=== PATIENT | female | born 1990 | race African-American/Black ===

== ENCOUNTER 2021-04-19 17:05 | Emergency (ER) | payer OTHER, SELFPAY ==
[2021-04-19 17:07] VITALS: BP 128/89; PULSE 66; RESP 14; TEMP 36.5; O2SAT 100; BMI 19.5
--- NOTE | 2021-04-19 17:38 | DI.CT.S_ITS ---
PROCEDURE: CT HEAD/BRAIN WO CON INDICATIONS: behavior changes TECHNIQUE: Noncontrast 4.5 mm thick angled axial sections acquired from the foramen magnum to the vertex, with coronal and sagittal reformats. For radiation dose reduction, the following was used: automated exposure control, adjustment of mA and/or kV according to patient size. COMPARISON: None. FINDINGS: Image quality: Excellent. CSF spaces: Basal cisterns are patent. No extra-axial fluid collections. Ventricles are normal in size and shape. Brain: No midline shift. No intracranial masses or hemorrhage. Gallego-white matter interface is normal. Skull and face: Calvarium and visualized facial bones are intact, without suspicious lesions. Sinuses: Visualized sinuses and mastoids are clear. IMPRESSION: No acute intracranial abnormality Dictated by: Suhas Doherty M.D. on 04/19/2021 at 16:49 Approved by: Suhas Doherty M.D. on 04/19/2021 at 16:50
[2021-04-19 18:14] LABS: Add Manual Diff / Slide Review NO; Basophils Absolute Auto 0 /uL (0-100); Basophils Percent Auto 0.5 % (0-2); Eosinophils Absolute Auto 0 /uL (0-450); Eosinophils Percent Auto 0.4 % (2-4); Hemoglobin 11.8 g/dL (12.0-16.0); Lymphocytes Absolute Auto 1700 /uL (1100-4500); Lymphocytes Percent Auto 32.6 % (25-40); Mean Corpuscular HGB Conc 33.8 % (30-36); Mean Corpuscular Hemoglobin 33.5 PG (26-34); Mean Corpuscular Volume 99.2 fL (80-100); Monocytes Absolute Auto 500 /uL (0-900); Monocytes Percent Auto 9.3 % (3-14); Neutrophils Absolute Auto 3000 /uL (1500-7000); Neutrophils Percent Auto 57.2 % (50-75); Platelet Count 311 X10^3/uL (150-400); Red Blood Cell Count 3.53 X10^6/uL (4.0-5.2); White Blood Cell Count 5.3 X10^3/uL (4.5-11.0)
[2021-04-19 18:17] LABS: Acetaminophen < 10 ug/mL (10-30); Alanine Aminotransferase 16 IU/L (<35); Albumin 4.7 g/dL (3.5-5.0); Albumin Globulin Ratio 1.5 (1.0-2.8); Alkaline Phosphatase 54 U/L (38-126); Aspartate Aminotransferase 25 IU/L (14-36); BUN Creatinine Ratio 19.4 (6-22); Bilirubin Total 0.5 mg/dL (0.2-1.3); Blood Urea Nitrogen 12 mg/dL (7-17); Calcium 9.4 mg/dL (8.4-10.2); Carbon Dioxide 27 mmol/L (22-32); Chloride 106 mmol/L (98-107); Estimated Glomerular Filt Rate > 60.0 mL/min (>60); Ethanol (ETOH) < 10 mg/dL; Globulin 3.2 g/dL (1.7-4.1); Glucose 87 mg/dL (70-100); HEMOLYSIS < 15 (0-50); Potassium 4.2 mmol/L (3.4-5.1); Salicylate < 1.0 mg/dL (<20); Sodium 142 mmol/L (137-145); Total Protein 7.9 g/dL (6.3-8.2)
--- NOTE | 2021-04-19 18:36 | CM.SWNOTE ---
GRIEF COUNSELLOR Assessment GRIEF COUNSELLOR - Soft Sugar Operator Head Assessment GRIEF COUNSELLOR/Soft Sugar Operator Head Assessment Time Spent with Patient Start date 04/19/21 Visit Start Time 17:50 End date 04/19/21 Visit End Time 18:05 Total time Care Management spent on 15 patient visit-in minutes Mental Health Screening Include Onset, Duration, Intensity Presenting Problem Patient presents to ED with commanding officer (CO) per recommendation from [facility] provider. It was reported that patient drove southbound with intent to go to [place] and patient did not show up for work. [place] commanding officer has concerns for patient's behaviors and patient not completing work duties or coming to work regularly Precipitating Event(s) Patient denies precipitating events and states work is fine When asked why patient is here she indicates that CO has concerns she is withdrawn and I drove towards [place] instead of work Patient endorses that someone called so she turned around. Patient Strengths Patient was willing to come to the ED with CO. Current Behavioral Health Provider(s) Patient endorses she had a MH Include Facility, Provider, Ph. # provider in 2018 or 2019 and does not have a current MH provider and does not have an interest in seeing a MH provider. Patient has scheduled appt with [facility] tomorrow at 1pm. Patient indicates her disinterest in attending appt but will do so if needed. Psych. Hx Mental Health and Chemical Patient denies MH dx but Dependency states she has normal amount of anxiety Patient denies substance use and ETOH use. Family Hx of Behavioral Abuse None reported Psychiatric Hospitalizations (date(s)/ None reported location) Psychosocial information & Support Patient is 30 y/o female who Systems resides in [place] and recently moved here 3 months ago from [place]. Patient states she is originally from [place]. Patient denies friends or family supports. 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 Patient endorses she likes it in the [employer]. Legal Concerns Legal Matters - Outstanding Issues None reported Mental Status Orientation (Person/Place/Time) A/Ox4 Stated Mood ok Affect (Congruent with Mood?) Flat, congruent with mood Thought Content - Specify/Describe Patient denies thought content Obsessions, Delusions, Hallucinations Thought Processes (Hehttsn-Omgbappp-Fnvt coherent Qceadcpf-Rmvzdgsi-Emlazaxbia- Fthrdzfhkykjre-Hbxiisp-Phxvbmqzyskq- Thought Blocking) Speech (Ywowpc-Bfua-Fhwdsns-Rapid-Soft- slow to respond, soft voice Loud-Pressured) Motor (Swsbvl-Ntrdlsarf-Mvgb-Other) normal/slow, not formally assessed. Patient presents with limited eye contact. Insight (Iyoh-Xrzn-Zuba/Limited) Poor/limited. Patient does not identify her recent behaviors as a concern. CO indicates to GRIEF COUNSELLOR after GRIEF COUNSELLOR meets with patient that patient is at risk of being in trouble due to missing work and not doing her job duties. Judgement (Cqct-Teys-Glib/Limited) Poor/limited. Patient does not present with concern about the consequences of missing work today. Impulse Control (Adequate-Impaired) Adequate during assessment Memory (Nsdxdnxmm-Isbwzz-Rfurhk, Intact, not formally assessed Impaired-Intact) Concentration (Intact-Impaired) intact Attention (Intact-Impaired) intact Behavior (Appropriate-Inappropriate) appropriate Additional Comment Patient answers questions when asked but does not elaborate to questions. Risk Assessment Suicidal Ideation (Plan) No Homicidal Ideation (Plan) No Intervention Intervention GRIEF COUNSELLOR enters room to meet with patient. Present in room is patient's [place] CO and patient provides consent for CO to be present. Patient presents with flat affect, slow to respond and limited speech. Patient is difficult to hear for GRIEF COUNSELLOR due to soft speaking voice. Patient denies HI and SI. Patient indicates understanding that her withdrawn behaviors and driving towards [place] today led to ED visit. Patient denies need or interest in follow through with MH providers on [facility]. It is reported that patient has appt with MH provider at [facility] tomorrow at 1300. Patient endorses that she does not have interest in seeing MH provider regularly. Patient indicates that she is fine and work is fine and denies concerns. GRIEF COUNSELLOR speaks with CO after meeting with patient who endorses that patient has not been showing up to work lately , stares at computer screen when she is at work and can be found sitting in her car for long periods of time. CO also reports that patient does not communicate much and has not connected with people due to her lack of communication. CO endorses that patient drove to exit [facility] when she was asked to turn around and return to [facility]. It is the opinion of this GRIEF COUNSELLOR that patient is safe to d/c to the community when medically clear. Patient was driven by [employer] CO who will provide further transportation as needed. [employer] NM indicates that patient will have BH f/u tomorrow. GRIEF COUNSELLOR reviews the above with ED provider Dr. Suazo who indicates agreement and understanding. Plan RA Plan ED provider to conduct further medical assessment for medical clearance, patient to d/c with [place] CO when medically clear and to f/u with [facility] for appt tomorrow. KENNEY Bernstein
[2021-04-19 18:47] LABS: Free T4, Direct Thyroxine 1.06 ng/dL (0.78-2.19)
[2021-04-19 19:19] LABS: UR Morphine/Opiate cutoff 300 Negative (Negative); Ur Creatinine Normal (Normal); Ur Specific Gravity Normal (Normal); Urine Amphetamines Negative (Negative); Urine Barbiturates Negative (Negative); Urine Benzodiazepines Negative (Negative); Urine Cocaine Negative (Negative); Urine MDMA Negative (Negative); Urine Methadone Negative (Negative); Urine Methamphetamines Negative (Negative); Urine Oxycodone Negative (Negative); Urine Phencyclidine Negative (Negative); Urine Tetrahydrocannabinol Negative (Negative); Urine Tricyclic Antidepressant Negative (Negative); Urine pH Normal (Normal)
--- NOTE | 2021-04-19 19:39 | PC.NURSE ---
Normal neuro exam. Pt is a/o x 4. States that she is aware that her behavior is concerning to others but is not concerning to her. Denies SI/HI. ENTRY LEVEL ELECTRICAL ENGINEER has seen pt and deemed safe for discharge when medically cleared.
--- NOTE | 2021-04-19 19:47 | ED.NEUROSD ---
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 She apparently found herself today driving to [place] where she was previously based. She got a phone call from superiors who instructed her to turn around and [place]. She was transferred here in December 2020 she was previously based in [place] from 2016 to 2020. She said in [place] she like to go hiking shopping out to dinner. She had friends. She is not necessarily close with her family. Here she denies having friends. She says she has previously been transferred in the does not note that anything is different about this particular transfer. She denies any trauma or injury to herself. She denies any suicidal or homicidal ideations. She has no pain currently. She has very limited on her responses. She denies any hallucinations either visual or auditory. On Anticoagulants: No Related Data Allergies Allergy/AdvReac Type Severity Reaction Status Date / Time No Known Drug Allergies Allergy Verified 04/19/21 19:36 Review of Systems Review of Systems Narrative: GENERAL: Denies chills,fever HEENT: Denies throat pain RESPIRATORY: Denies dyspnea, cough, wheezing CARDIOVASCULAR: Denies chest pain, palpitations GASTROINTESTINAL: Denies nausea, vomiting MUSCULOSKELETAL: Denies extremity pain, injury SKIN: No rash, no laceration, no pruritus NEUROLOGIC: Denies weakness, dizziness, headache, numbness 8 point review of systems is negative except for those stated above and HPI Psychiatric Psychiatric: Reports as per HPI Hematologic/Lymphatic On Anticoagulants: No Patient History Social History Smoking Status: Former smoker Smoking Status: Former smoker tobacco type: vaping Substance Use Type: does not use Exam Initial Vital Signs Initial Vital Signs: Vital Signs Temperature 97.7 F 04/19/21 17:07 Pulse Rate 66 04/19/21 17:07 Respiratory Rate 14 04/19/21 17:07 Blood Pressure 128/89 04/19/21 17:07 Pulse Oximetry 100 04/19/21 17:07 GENERAL: Well-appearing, well-nourished and in no acute distress. Minimal eye contact but does make eye contact very flat affect CARDIOVASCULAR: peripheral pulses in tact, cap refill <2 sec RESPIRATORY: No respiratory distress, speaks in full sentences without difficulty EXTREMITIES: Normal range of motion, no clubbing or edema. Neurovascularly intact NEUROLOGICAL: Cranial nerves II through XII grossly intact. Normal gait and speech. SKIN: Warm, dry, no petechiae, no rashes or lesions. Psych Appearance: grossly normal and well kempt Mental Status: mental status grossly normal Speech and Movement: speech and movement normal Mood: labile mood Affect: blunted Judgment: fair Course Orders Ordered: ED Orders 04/19/21 17:38 CT head/brain wo con Stat 04/19/21 17:49 Consult to [facility] - Primary [place] Stat 04/19/21 17:57 Acetaminophen Stat Complete Blood Count AUTO DIFF Stat Comprehensive Metabolic Panel Stat Ethanol (ETOH) Stat Free T4, Direct Thyroxine Stat Salicylate Stat Thyroid Stimulating Hormone Stat 04/19/21 18:29 Urine Drug Screen, Rapid Stat Urine Microscopic Stat Vital Signs Vital signs: Vital Signs - 8 hr 04/19/21 20:10 Pulse Rate 70 Respiratory Rate 18 Blood Pressure 122/78 Pulse Oximetry 99 MDM - Neuro Symptoms/Deficit Lab Data Result diagrams: 04/19/21 17:57 04/19/21 17:57 Labs: Lab Results 04/19/21 04/19/21 04/19/21 Range/Units 17:57 17:57 17:57 WBC 5.3 (4.5-11.0) X10^3/uL RBC 3.53 L (4.0-5.2) X10^6/uL Hgb 11.8 L (12.0-16.0) g/dL Hct 35.0 L (36-46) % MCV 99.2 (80-100) fL MCH 33.5 (26-34) PG MCHC 33.8 (30-36) % RDW 13.0 (11.6-14.8) % Plt Count 311 (150-400) X10^3/uL Neut % (Auto) 57.2 (50-75) % Lymph % (Auto) 32.6 (25-40) % [place] % (Auto) 9.3 (3-14) % Eos % (Auto) 0.4 L (2-4) % Baso % (Auto) 0.5 (0-2) % Neut # (Auto) 3000 (8734-7888) /uL Lymph # (Auto) 1700 (7116-4987) /uL [place] # (Auto) 500 (0-900) /uL Eos # (Auto) 0 (0-450) /uL Baso # (Auto) 0 (0-100) /uL Sodium 142 (137-145) mmol/L Potassium 4.2 (3.4-5.1) mmol/L Chloride 106 (98-107) mmol/L Carbon Dioxide 27 (22-32) mmol/L BUN 12 (7-17) mg/dL Creatinine 0.62 (0.52-1.04) mg/dL Estimated GFR > 60.0 (>60) mL/min BUN/Creatinine Ratio 19.4 (6-22) Glucose 87 (70-100) mg/dL Calcium 9.4 (8.4-10.2) mg/dL Total Bilirubin 0.5 (0.2-1.3) mg/dL AST 25 (14-36) IU/L ALT 16 (<35) IU/L Alkaline Phosphatase 54 (38-126) U/L Total Protein 7.9 (6.3-8.2) g/dL Albumin 4.7 (3.5-5.0) g/dL Globulin 3.2 (1.7-4.1) g/dL Albumin/Globulin Ratio 1.5 (1.0-2.8) TSH 2.20 (0.47-4.68) uIU/mL Free T4 1.06 (0.78-2.19) ng/dL Urine RBC (0-5/HPF) Urine WBC (0-5/HPF) Ur Squamous Epith Cells (0-5/HPF) Ur Transition Epith Cell (0-5/HPF) Urine Bacteria (None) Urine Mucus (Negative) Ur Culture Indicated? Salicylates < 1.0 (<20) mg/dL U Opiates 300ng/mL cut (Negative) Ur Oxycodone Screen (Negative) Urine Methadone Screen (Negative) Acetaminophen < 10 L (10-30) ug/mL Ur Barbiturates Screen (Negative) U Tricyclic Antidepress (Negative) Ur Phencyclidine Scrn (Negative) Ur Amphetamines Screen (Negative) U Methamphetamines Scrn (Negative) Ur MDMA Scrn (Ecstasy) (Negative) U Benzodiazepines Scrn (Negative) Urine Cocaine Screen (Negative) U Marijuana (THC) Screen (Negative) Ethyl Alcohol < 10 ( - 10) mg/dL 04/19/21 04/19/21 Range/Units 18:29 18:29 WBC (4.5-11.0) X10^3/uL RBC (4.0-5.2) X10^6/uL Hgb (12.0-16.0) g/dL Hct (36-46) % MCV (80-100) fL MCH (26-34) PG MCHC (30-36) % RDW (11.6-14.8) % Plt Count (150-400) X10^3/uL Neut % (Auto) (50-75) % Lymph % (Auto) (25-40) % [place] % (Auto) (3-14) % Eos % (Auto) (2-4) % Baso % (Auto) (0-2) % Neut # (Auto) (1903-8324) /uL Lymph # (Auto) (3503-3796) /uL [place] # (Auto) (0-900) /uL Eos # (Auto) (0-450) /uL Baso # (Auto) (0-100) /uL Sodium (137-145) mmol/L Potassium (3.4-5.1) mmol/L Chloride (98-107) mmol/L Carbon Dioxide (22-32) mmol/L BUN (7-17) mg/dL Creatinine (0.52-1.04) mg/dL Estimated GFR (>60) mL/min BUN/Creatinine Ratio (6-22) Glucose (70-100) mg/dL Calcium (8.4-10.2) mg/dL Total Bilirubin (0.2-1.3) mg/dL AST (14-36) IU/L ALT (<35) IU/L Alkaline Phosphatase (38-126) U/L Total Protein (6.3-8.2) g/dL Albumin (3.5-5.0) g/dL Globulin (1.7-4.1) g/dL Albumin/Globulin Ratio (1.0-2.8) TSH (0.47-4.68) uIU/mL Free T4 (0.78-2.19) ng/dL Urine RBC None seen (0-5/HPF) Urine WBC 1-5/hpf (0-5/HPF) Ur Squamous Epith Cells 1-5 /hpf (0-5/HPF) Ur Transition Epith Cell 0-1/hpf (0-5/HPF) Urine Bacteria Few (2-10) H (None) Urine Mucus 2+ H (Negative) Ur Culture Indicated? Cult not indicated Salicylates (<20) mg/dL U Opiates 300ng/mL cut Negative (Negative) Ur Oxycodone Screen Negative (Negative) Urine Methadone Screen Negative (Negative) Acetaminophen (10-30) ug/mL Ur Barbiturates Screen Negative (Negative) U Tricyclic Antidepress Negative (Negative) Ur Phencyclidine Scrn Negative (Negative) Ur Amphetamines Screen Negative (Negative) U Methamphetamines Scrn Negative (Negative) Ur MDMA Scrn (Ecstasy) Negative (Negative) U Benzodiazepines Scrn Negative (Negative) Urine Cocaine Screen Negative (Negative) U Marijuana (THC) Screen Negative (Negative) Ethyl Alcohol ( - 10) mg/dL Point of Care Testing Test Results Negative Urine Dip Bedside Urine Glucose Negative Bedside Urine Bilirubin - Negative Bedside Urine Ketone + 15 Urine Specific [place] 1.030 Bedside Urine Occult Blood - Negative Bedside Urine pH 6.0 Bedside Urine Protein +/- 15 Bedside Urine Urobilinogen - Negative Bedside Urine Nitrite - Negative Bedside Urine Leukocytes - Negative Esterase Imaging Data CT scan - head: Radiologist's Impression: PROCEDURE:? CT HEAD/BRAIN WO CON ? INDICATIONS:? behavior changes ? TECHNIQUE:? Noncontrast 4.5 mm thick angled axial sections acquired from the foramen magnum to the vertex, with coronal and sagittal reformats.? For radiation dose reduction, the following was used:? automated exposure control, adjustment of mA and/or kV according to patient size.? ? COMPARISON:? None. ? FINDINGS:? Image quality:? Excellent.? ? CSF spaces:? Basal cisterns are patent.? No extra-axial fluid collections.? Ventricles are normal in size and shape.? ? Brain:? No midline shift.? No intracranial masses or hemorrhage.? Gallego-white matter interface is normal.? ? Skull and face:? Calvarium and visualized facial bones are intact, without suspicious lesions.? ? Sinuses:? Visualized sinuses and mastoids are clear.? ? IMPRESSION:? No acute intracranial abnormality ? ? Dictated by: Suhas Doherty M.D. on 04/19/2021 at 16:49 ? ? MDM Narrative Medical decision making narrative: Patient is very soft-spoken flat affect minimal eye contact but does have eye contact she is very polite. She adamantly denies any injury she is not sure what happened. She does not think anything is wrong nor does she want to talk to anyone. I strongly encouraged her that therapy may be helpful for her. At this time she certainly does not meet any sort of involuntary criteria. She was instructed to turn around and she did so earlier today. She actually has close outpatient follow-up with the . She was seen and evaluated by social work here in the emergency department. At this time seems reasonable to discharge. Discharge Plan Departure Patient Disposition: Home Clinical Impression: Behavior concern Instructions: Psychosis Activity Restrictions/Additional Instructions: *You have been diagnosed with a behavior problem *What to do: At this time blood work and CT scans do not show any abnormality. Please consider therapy have. It does not have to be exterminator termite but may be very beneficial a short-term *Continue to take medications as directed *Follow up with your primary care provider in 2-3 days or call [phone] *Return to ER if you should have thoughts of harming self or other, hallucinations or any new, worsening or concerning symptoms Referrals: [facility] [Provider Group]
[2021-04-19 20:07] LABS: Bacteria Urine Few (2-10); RBC Urine None Seen (0-5/HPF); Squamous Epithelial Cell Urine 1-5 /HPF (0-5/HPF); Transitional Epi Cells Urine 0-1/HPF (0-5/HPF); WBC Urine 1-5/HPF (0-5/HPF)
[2021-04-19 20:08] LABS: Culture Indicated Urine Cult Not Indicated; Mucus Urine 2+ (Negative)
[2021-04-19 20:10] VITALS: BP 122/78; PULSE 70; RESP 18; O2SAT 99
== END 2021-04-19 20:11 | disposition home or self-care (01) ==
PROVIDERS: Emergency Medicine; Emergency Provider Emergency Medicine
DX: R46.89 Other symptoms and signs involving appearance and behavior (principal)
CPT/HCPCS: 36415; 70450; 80053; 80305; 80320; 80329; 81003; 81015; 81025; 84439; 84443; 85025; 99284; G0480

== ENCOUNTER 2021-06-01 12:28 | Emergency (ER) | payer OTHER, SELFPAY ==
[2021-06-01 12:57] VITALS: BP 118/67; PULSE 62; RESP 16; TEMP 36.6; O2SAT 98
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
[2021-06-01 15:20] VITALS: BP 122/74; PULSE 64; O2SAT 99
== END 2021-06-01 15:28 | disposition home or self-care (01) ==
PROVIDERS: Emergency Provider Emergency Medicine
DX: R52 Pain, unspecified (principal); V89.0XXA Person injured in unspecified motor-vehicle accident, nontraffic, initial encounter
CPT/HCPCS: 99281

== ENCOUNTER 2021-06-24 11:53 | Emergency (ER) | payer OTHER, SELFPAY ==
[2021-06-24 12:07] VITALS: BP 119/66; PULSE 59; RESP 14; TEMP 36.4; O2SAT 100; BMI 20.5
[2021-06-24 12:29] LABS: Ur Creatinine Normal (Normal); Ur Specific Gravity Normal (Normal); Urine pH Normal (Normal)
[2021-06-24 12:30] LABS: UR Morphine/Opiate cutoff 300 Negative (Negative); Urine Amphetamines Negative (Negative); Urine Barbiturates Negative (Negative); Urine Benzodiazepines Negative (Negative); Urine Cocaine Negative (Negative); Urine MDMA Negative (Negative); Urine Methadone Negative (Negative); Urine Methamphetamines Negative (Negative); Urine Oxycodone Negative (Negative); Urine Phencyclidine Negative (Negative); Urine Tetrahydrocannabinol Negative (Negative); Urine Tricyclic Antidepressant Negative (Negative)
[2021-06-24 13:18] LABS: Add Manual Diff / Slide Review NO; Basophils Absolute Auto 0 /uL (0-100); Basophils Percent Auto 0.8 % (0-2); Eosinophils Absolute Auto 0 /uL (0-450); Eosinophils Percent Auto 0.8 % (2-4); Hematocrit 37.6 % (36-46); Hemoglobin 12.4 g/dL (12.0-16.0); Lymphocytes Absolute Auto 1200 /uL (1100-4500); Lymphocytes Percent Auto 24.7 % (25-40); Mean Corpuscular Hemoglobin 33.3 PG (26-34); Mean Corpuscular Volume 100.7 fL (80-100); Monocytes Absolute Auto 400 /uL (0-900); Monocytes Percent Auto 8.7 % (3-14); Neutrophils Absolute Auto 3200 /uL (1500-7000); Platelet Count 304 X10^3/uL (150-400); Red Blood Cell Count 3.73 X10^6/uL (4.0-5.2); Red Cell Distribution Width 13.1 % (11.6-14.8); White Blood Cell Count 4.9 X10^3/uL (4.5-11.0)
[2021-06-24 13:46] LABS: Acetaminophen < 10 ug/mL (10-30); Alanine Aminotransferase 11 IU/L (<35); Albumin 4.7 g/dL (3.5-5.0); Albumin Globulin Ratio 1.5 (1.0-2.8); Alkaline Phosphatase 51 U/L (38-126); Aspartate Aminotransferase 25 IU/L (14-36); BUN Creatinine Ratio 25.4 (6-22); Bilirubin Total 0.5 mg/dL (0.2-1.3); Blood Urea Nitrogen 17 mg/dL (7-17); Calcium 9.3 mg/dL (8.4-10.2); Carbon Dioxide 26 mmol/L (22-32); Chloride 106 mmol/L (98-107); Estimated Glomerular Filt Rate > 60.0 mL/min (>60); Ethanol (ETOH) < 10 mg/dL; Globulin 3.2 g/dL (1.7-4.1); Glucose 80 mg/dL (70-100); HEMOLYSIS 47 (0-50); Potassium 4.3 mmol/L (3.4-5.1); Salicylate < 1.0 mg/dL (<20); Sodium 141 mmol/L (137-145); Total Protein 7.9 g/dL (6.3-8.2)
[2021-06-24 13:59] LABS: Free T4, Direct Thyroxine 1.15 ng/dL (0.78-2.19)
[2021-06-24 14:12] LABS: Thyroid Stimulating Hormone 0.322 uIU/mL (0.47-4.68)
[2021-06-24 15:10] LABS: Appearance Urine UA CLEAR; Bilirubin Urine UA NEGATIVE (NEGATIVE); Color Urine UA YELLOW; Glucose Urine UA NEGATIVE (Negative); Ketones Urine UA TRACE (NEGATIVE); Leukocyte Esterase Urine UA TRACE (NEGATIVE); Nitrite Urine UA NEGATIVE (Negative); Occult Blood Urine UA NEGATIVE (Negative); Protein Urine UA 1+ (Negative); Urobilinogen Urine UA 0.2 E.U./dL (0.2)
[2021-06-24 15:12] LABS: pH Urine UA 8.5 (4.5-8.0)
[2021-06-24 15:18] LABS: Amorphous Sediment Urine 1+; Bacteria Urine Few (2-10); Culture Indicated Urine Specimen Cultured; Mucus Urine 1+ (Negative); RBC Urine None Seen (0-5/HPF); Squamous Epithelial Cell Urine 1-5 /HPF (0-5/HPF); WBC Urine 1-5/HPF (0-5/HPF)
--- NOTE | 2021-06-24 15:24 | ED_ITS ---
HPI - Psych General Chief Complaint: Psychiatric Symptoms Stated Complaint: Mental eval Time Seen by Provider: 06/24/21 14:49 Source: patient Mode of arrival: Ambulatory History of Present Illness HPI Narrative: Patient here for evaluation of event that occurred today that she got angry. Patient is on the [employer]. The [employer] psychiatrist sent patient here for evaluation for possible safety concerns. Patient arrives here by private vehicle. Patient does not elaborate events of today. However she states no SI no HI. No hallucinations. Denies any drugs or alcohol. She states she did get angry today at work. But did not want hurt anybody. Related Data Allergies Allergy/AdvReac Type Severity Reaction Status Date / Time No Known Drug Allergies Allergy Verified 06/24/21 12:07 Review of Systems Review of Systems Narrative: GENERAL: Denies chills, fatigue, malaise, fever, sweats. HEENT: Denies sinus pain, ear pain, sore throat RESPIRATORY: Denies dyspnea, cough CARDIOVASCULAR: Denies chest pain, palpitations GASTROINTESTINAL: Denies nausea, vomiting, abdominal pain : Denies dysuria, frequency, hematuria MUSCULOSKELETAL: denies muscle or bony pain SKIN: Denies rash, skin lesions NEUROLOGIC: Denies weakness, numbness PSYCH: Anxious, no SI HI ROS Unobtainable: All systems reviewed & are unremarkable except as noted in HPI and below Patient History Medical History Healthy adult Social History Smoking Status: Former smoker Smoking Status: Former smoker tobacco type: vaping alcohol intake frequency: holidays/special occasions only Substance Use Type: does not use Exam Narrative Exam Narrative: GENERAL: in no distress, not toxic not dyspneic HEAD: Normocephalic. EYES: Pupils equal round No scleral icterus. ENT: Mucous membranes moist. NECK: Trachea midline. CARDIOVASCULAR: Regular rate and rhythm without murmurs RESPIRATORY: Clear to auscultation. Breath sounds equal bilaterally. No wheezes, rales, or rhonchi. GASTROINTESTINAL: Abdomen soft, non-tender EXTREMITIES: No gross deformities. BACK: No flank tenderness. NEURO: AOx4. SKIN: Warm and dry PSYCH: Not anxious, is cooperative, no SI no HI. Not combative. Is cooperative. Initial Vital Signs Initial Vital Signs: Vital Signs Temperature 97.5 F L 06/24/21 12:07 Pulse Rate 59 L 06/24/21 12:07 Respiratory Rate 14 06/24/21 12:07 Blood Pressure 119/66 06/24/21 12:07 Pulse Oximetry 100 06/24/21 12:07 Course Course Course Narrative: No new issues during course of stay Orders Ordered: ED Orders 06/24/21 12:20 Urinalysis and Microscopic Stat Urine Culture Stat Urine Drug Screen, Rapid Stat 06/24/21 12:38 Acetaminophen Stat Complete Blood Count AUTO DIFF Stat Comprehensive Metabolic Panel Stat Ethanol (ETOH) Stat Free T4, Direct Thyroxine Stat Salicylate Stat Thyroid Stimulating Hormone Stat 06/24/21 13:48 Consult to [facility] [place] - Home Health Occupational Therapist Stat Reevaluation(s) Reevaluation #1: Patient seen by social workjami, at this time patient is compliant and non combative. No SI no HI. Appropriate for discharge home Time: 16:10 Vital Signs Vital signs: Vital Signs - 8 hr 06/24/21 12:07 Temperature 97.5 F L Pulse Rate 59 L Respiratory Rate 14 Blood Pressure 119/66 Pulse Oximetry 100 MDM - Psych Differential Diagnosis Differential diagnosis: Likely other (Anxiety/mood disorder) Lab Data Result diagrams: 06/24/21 12:38 06/24/21 12:38 Labs: Lab Results 06/24/21 06/24/21 06/24/21 Range/Units 12:20 12:20 12:38 WBC 4.9 (4.5-11.0) X10^3/uL RBC 3.73 L (4.0-5.2) X10^6/uL Hgb 12.4 (12.0-16.0) g/dL Hct 37.6 (36-46) % MCV 100.7 H (80-100) fL MCH 33.3 (26-34) PG MCHC 33.0 (30-36) % RDW 13.1 (11.6-14.8) % Plt Count 304 (150-400) X10^3/uL Neut % (Auto) 65.0 (50-75) % Lymph % (Auto) 24.7 L (25-40) % [place] % (Auto) 8.7 (3-14) % Eos % (Auto) 0.8 L (2-4) % Baso % (Auto) 0.8 (0-2) % Neut # (Auto) 3200 (6677-5211) /uL Lymph # (Auto) 1200 (5606-3026) /uL [place] # (Auto) 400 (0-900) /uL Eos # (Auto) 0 (0-450) /uL Baso # (Auto) 0 (0-100) /uL Sodium (137-145) mmol/L Potassium (3.4-5.1) mmol/L Chloride (98-107) mmol/L Carbon Dioxide (22-32) mmol/L BUN (7-17) mg/dL Creatinine (0.52-1.04) mg/dL Estimated GFR (>60) mL/min BUN/Creatinine Ratio (6-22) Glucose (70-100) mg/dL Calcium (8.4-10.2) mg/dL Total Bilirubin (0.2-1.3) mg/dL AST (14-36) IU/L ALT (<35) IU/L Alkaline Phosphatase (38-126) U/L Total Protein (6.3-8.2) g/dL Albumin (3.5-5.0) g/dL Globulin (1.7-4.1) g/dL Albumin/Globulin Ratio (1.0-2.8) TSH (0.47-4.68) uIU/mL Free T4 (0.78-2.19) ng/dL Urine Color Yellow Urine Appearance Clear Urine pH 8.5 H (4.5-8.0) Ur Specific [place] 1.020 (1.000-1.035) Urine Protein 1+ H (Negative) Urine Glucose (UA) Negative (Negative) g/dL Urine Ketones Trace H (NEGATIVE) Urine Occult Blood Negative (Negative) Urine Nitrate Negative (Negative) Urine Bilirubin Negative (NEGATIVE) Urine Urobilinogen 0.2 (0.2) E.U./dL Ur Leukocyte Esterase Trace H (NEGATIVE) Urine RBC None seen (0-5/HPF) Urine WBC 1-5/hpf (0-5/HPF) Ur Squamous Epith Cells 1-5 /hpf (0-5/HPF) Amorphous Sediment 1+ Urine Bacteria Few (2-10) H (None) Urine Mucus 1+ H (Negative) Ur Culture Indicated? Specimen cultured Salicylates (<20) mg/dL U Opiates 300ng/mL cut Negative (Negative) Ur Oxycodone Screen Negative (Negative) Urine Methadone Screen Negative (Negative) Acetaminophen (10-30) ug/mL Ur Barbiturates Screen Negative (Negative) U Tricyclic Antidepress Negative (Negative) Ur Phencyclidine Scrn Negative (Negative) Ur Amphetamines Screen Negative (Negative) U Methamphetamines Scrn Negative (Negative) Ur MDMA Scrn (Ecstasy) Negative (Negative) U Benzodiazepines Scrn Negative (Negative) Urine Cocaine Screen Negative (Negative) U Marijuana (THC) Screen Negative (Negative) Ethyl Alcohol ( - 10) mg/dL 06/24/21 06/24/21 Range/Units 12:38 12:38 WBC (4.5-11.0) X10^3/uL RBC (4.0-5.2) X10^6/uL Hgb (12.0-16.0) g/dL Hct (36-46) % MCV (80-100) fL MCH (26-34) PG MCHC (30-36) % RDW (11.6-14.8) % Plt Count (150-400) X10^3/uL Neut % (Auto) (50-75) % Lymph % (Auto) (25-40) % [place] % (Auto) (3-14) % Eos % (Auto) (2-4) % Baso % (Auto) (0-2) % Neut # (Auto) (3561-4206) /uL Lymph # (Auto) (6067-7914) /uL [place] # (Auto) (0-900) /uL Eos # (Auto) (0-450) /uL Baso # (Auto) (0-100) /uL Sodium 141 (137-145) mmol/L Potassium 4.3 (3.4-5.1) mmol/L Chloride 106 (98-107) mmol/L Carbon Dioxide 26 (22-32) mmol/L BUN 17 (7-17) mg/dL Creatinine 0.67 (0.52-1.04) mg/dL Estimated GFR > 60.0 (>60) mL/min BUN/Creatinine Ratio 25.4 H (6-22) Glucose 80 (70-100) mg/dL Calcium 9.3 (8.4-10.2) mg/dL Total Bilirubin 0.5 (0.2-1.3) mg/dL AST 25 (14-36) IU/L ALT 11 (<35) IU/L Alkaline Phosphatase 51 (38-126) U/L Total Protein 7.9 (6.3-8.2) g/dL Albumin 4.7 (3.5-5.0) g/dL Globulin 3.2 (1.7-4.1) g/dL Albumin/Globulin Ratio 1.5 (1.0-2.8) TSH 0.322 L (0.47-4.68) uIU/mL Free T4 1.15 (0.78-2.19) ng/dL Urine Color Urine Appearance Urine pH (4.5-8.0) Ur Specific [place] (1.000-1.035) Urine Protein (Negative) Urine Glucose (UA) (Negative) g/dL Urine Ketones (NEGATIVE) Urine Occult Blood (Negative) Urine Nitrate (Negative) Urine Bilirubin (NEGATIVE) Urine Urobilinogen (0.2) E.U./dL Ur Leukocyte Esterase (NEGATIVE) Urine RBC (0-5/HPF) Urine WBC (0-5/HPF) Ur Squamous Epith Cells (0-5/HPF) Amorphous Sediment Urine Bacteria (None) Urine Mucus (Negative) Ur Culture Indicated? Salicylates < 1.0 (<20) mg/dL U Opiates 300ng/mL cut (Negative) Ur Oxycodone Screen (Negative) Urine Methadone Screen (Negative) Acetaminophen < 10 L (10-30) ug/mL Ur Barbiturates Screen (Negative) U Tricyclic Antidepress (Negative) Ur Phencyclidine Scrn (Negative) Ur Amphetamines Screen (Negative) U Methamphetamines Scrn (Negative) Ur MDMA Scrn (Ecstasy) (Negative) U Benzodiazepines Scrn (Negative) Urine Cocaine Screen (Negative) U Marijuana (THC) Screen (Negative) Ethyl Alcohol < 10 ( - 10) mg/dL Point of Care Testing Test Results Negative MDM Narrative Medical decision making narrative: Appropriate for discharge home. No SI no HI not combative. No hallucinations. No altered mental status. Patient seen by social work and appropriate for discharge home. Discharge Plan Departure Patient Disposition: Home Clinical Impression: Encounter for medical screening examination Instructions: Understanding and Managing the Stress Response, Get a Handle on Stress with Physical Fitness Activity Restrictions/Additional Instructions: Return if worsening questions or concerns. May see family doctor for re- evaluation in 1 or 2 weeks.
[2021-06-24 16:10] VITALS: BP 119/60; PULSE 60; RESP 15; TEMP 36.4; O2SAT 100
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
== END 2021-06-24 16:10 | disposition home or self-care (01) ==
PROVIDERS: Emergency Provider Emergency Medicine
DX: Z02.89 Encounter for other administrative examinations (principal); Z87.891 Personal history of nicotine dependence
CPT/HCPCS: 36415; 80053; 80305; 80320; 80329; 81001; 81025; 84439; 84443; 85025; 87086; 99283; 99284; G0480